=== PATIENT | female | born 2005 | race Two or more races ===

== ENCOUNTER 2024-04-20 14:44 | Emergency (ER) | payer BC, OTHER ==
[~2024-04-20] VITALS: Ht 160 cm; Wt 49.9 kg
[2024-04-20 14:57] VITALS: BP 103/65; TEMP 98.6
[2024-04-20] MEDS ORDERED: LIDOCAINE/PRILOCAINE (5GM) 5 GM TUBE TP ONE (15:30)
[2024-04-20] MEDS: LIDOCAINE/PRILOCAINE (5GM) 5 GM TUBE TP ONE (15:31)
[2024-04-20 16:09] VITALS: O2SAT 100
== END 2024-04-20 16:10 | disposition home or self-care (01) ==
LOC: ER 14:46
DX: S81.011A Laceration without foreign body, right knee, initial encounter (principal); W10.9XXA Fall (on) (from) unspecified stairs and steps, initial encounter; Y93.89 Activity, other specified; Y92.89 Other specified places as the place of occurrence of the external cause; Y99.8 Other external cause status
CPT/HCPCS: 73564-TC